=== PATIENT | female | born 1975 | race Caucasian/White ===

== ENCOUNTER 2021-06-21 19:59 | Emergency (ER) | payer MEDICAID, SELFPAY ==
[2021-06-21 20:02] VITALS: BP 140/91; PULSE 89; RESP 18; TEMP 36.7; O2SAT 100; BMI 21.6
[2021-06-21 20:09] VITALS: BP 140/91; PULSE 99; O2SAT 99
--- NOTE | 2021-06-21 21:16 | XR_ITS ---
PROCEDURE INFORMATION: Exam: XR Chest Exam date and time: 06/21/2021 9:27 PM Age: 45 years old Clinical indication: Pain; Other: Generalized post appendectomy 4 days ago. ; Prior surgery; Surgery date: Post-operative (0-2 days) TECHNIQUE: Imaging protocol: XR of the chest. Views: 2 views. COMPARISON: No relevant prior studies available. FINDINGS: Lungs: Unremarkable. No consolidation. Pleural spaces: Unremarkable. No pleural effusion. No pneumothorax. Heart/Mediastinum: Unremarkable. No cardiomegaly. Bones/joints: Unremarkable. IMPRESSION: No acute findings.
--- NOTE | 2021-06-21 21:16 | CT_ITS ---
PROCEDURE INFORMATION: Exam: CT Abdomen And Pelvis With Contrast Exam date and time: 06/21/2021 9:46 PM Age: 45 years old Clinical indication: Abdominal pain; Generalized; Prior surgery; Surgery date: 3-7 days post-operative; Surgery type: Appendectomy 4 days ago, pain with nausea and vomiting. TECHNIQUE: Imaging protocol: Computed tomography of the abdomen and pelvis with contrast. Radiation optimization: All CT scans at this facility use at least one of these dose optimization techniques: automated exposure control; mA and/or kV adjustment per patient size (includes targeted exams where dose is matched to clinical indication); or iterative reconstruction. Contrast material: ISOVUE; Contrast volume: 75 ml; Contrast route: IV; COMPARISON: CR XR CHEST 2V 06/21/2021 9:27 PM FINDINGS: Liver: Normal. No mass. Gallbladder and bile ducts: Normal. No calcified stones. No ductal dilation. Pancreas: Normal. No ductal dilation. Spleen: Normal. No splenomegaly. Adrenal glands: Normal. No mass. Kidneys and ureters: Normal. No hydronephrosis. Stomach and bowel: Unremarkable. No obstruction. No mucosal thickening. Appendix: Appendectomy. Intraperitoneal space: Unremarkable. No free air. No significant fluid collection. Arteries: Unremarkable. No abdominal aortic aneurysm. Lymph nodes: Unremarkable. No enlarged lymph nodes. Urinary bladder: Unremarkable as visualized. Reproductive: Unremarkable as visualized. Bones/joints: Spinal fixation hardware extending from L2 into the sacrum. Additional stabilizing screws are seen across both SI joints. L4-L5 spondylolisthesis. Soft tissues: Unremarkable. IMPRESSION: No acute findings.
--- NOTE | 2021-06-21 21:16 | [facility].EDGENADL ---
ED Disposition Clinical Impression: Discitis of lumbosacral region, Spinal abscess, Severe sepsis with acute organ dysfunction, IVDU (intravenous drug user), Amphetamine use Disposition: Xfer Short-Term Hosp Condition on Discharge: Serious Referrals: Bambi Beck APRN [Primary Care Provider] - - Critical Care Critical Care Time: Yes Attestation: On 06/21/21, the high probability of a clinically significant, sudden or life threatening deterioration of the following system(s) required my full and direct attention, intervention and personal management. The time I documented below is in addition to time spent performing reported procedures but includes the following listed in this critical care notation. Total Critical Care Time: 60 Vital system(s) involved:: Shock (Septic) My critical care processes included: Assessment & monitoring of V/S, Initial and Re-exams, Data Review/Interpretation, Coordinating Care, Medication Orders and management, Documentation Medical Decision Making - Medical Records Medical records reviewed: Yes: I reviewed the patient's medical records. - David Inquiry Pt receiving controlled substance: No Vital Signs: 06/21/21 20:02 06/21/21 20:09 06/21/21 22:54 Temperature 98.0 F Temperature Source Oral Pulse Rate 99 H 79 Pulse Rate [Left Radial] 89 Respiratory Rate 18 16 Blood Pressure 140/91 H 129/80 Blood Pressure [Right Arm] 140/91 H Blood Pressure Mean 106 98 Blood Pressure Mean [Right Arm] 107 Blood Pressure Source [Right Arm] Automatic Cuff Blood Pressure Position [Right Arm] Sitting 02 Sat by Pulse Oximetry 100 99 95 Oxygen Delivery Method Room Air 06/21/21 23:00 06/21/21 23:30 06/22/21 01:38 Temperature Temperature Source Pulse Rate 91 H 96 H 100 H Pulse Rate [Left Radial] Respiratory Rate Blood Pressure 144/85 H 130/79 135/78 Blood Pressure [Right Arm] Blood Pressure Mean 98 97 101 Blood Pressure Mean [Right Arm] Blood Pressure Source [Right Arm] Blood Pressure Position [Right Arm] 02 Sat by Pulse Oximetry 100 100 99 Oxygen Delivery Method - Lab Data Lab results reviewed: Yes: I reviewed the patient's lab results. Lab Results 06/21/21 00:00: Procalcitonin 0.747 06/21/21 21:16: SARS-CoV-2 (PCR) Not detected, Influenza A Untype (PCR) Not detected, Influenza Type B (PCR) Not detected 06/21/21 21:30: WBC 26.8 H*, RBC 4.13 L, Hgb 11.7 L, Hct 36.1 L, MCV 87.2, MCH 28.4, MCHC 32.6, RDW 14.8, Plt Count 594 H, MPV 8.1, Neut % (Auto) 93.1 H, Lymph % (Auto) 3.0 L, [place] % (Auto) 3.4, Eos % (Auto) 0.3, Baso % (Auto) 0.2, Neut # (Auto) 25.0 H, Lymph # (Auto) 0.8, [place] # (Auto) 0.9, Eos # (Auto) 0.1, Baso # (Auto) 0.1, Total Counted 100, Neutrophils % (Manual) 95 H, Lymphocytes % (Manual) 2 L, Monocytes % (Manual) 3, Platelet Estimate Moderate increase, ESR 126 H 06/21/21 21:30: Sodium 138, Potassium 2.9 L*, Chloride 105, Carbon Dioxide 25, Anion Gap 10.9, BUN 12, Creatinine 0.50 L, Estimated Creat Clear 148, Estimated GFR 135, Est GFR ( Amer) 163, Glucose 199 H, Calcium 8.8, Total Bilirubin 0.9, AST 20, ALT 21, Alkaline Phosphatase 175 H, C-Reactive Protein 250.0 H, Total Protein 7.2, Albumin 3.2 L, Globulin 4.0 H, Albumin/Globulin Ratio 0.8 L 06/21/21 21:30: Lactate 1.4 06/21/21 22:47: Urine Color Yellow, Urine Appearance Clear, Urine pH 6.5, Ur Specific [place] 1.010, Urine Protein Trace, Urine Glucose (UA) Trace, Urine Ketones Trace, Urine Blood Trace-i, Urine Nitrate Negative, Urine Bilirubin 1+ A, Urine Urobilinogen 2.0, Ur Leukocyte Esterase Negative, Urine RBC Occasional, Urine WBC 3-5, Ur Squamous Epith Cells 3-5, Urine Bacteria Trace 06/21/21 22:47: Urine Opiates Screen Negative, Urine Methadone Screen Negative, Ur Barbituates Screen Negative, Ur Phencyclidine Scrn Negative, Ur Amphetamines Screen Rn Pool, U Benzodiazepines Scrn Negative, Urine Cocaine Screen Negative, U Marijuana (THC) Screen Positive H Result diagrams: 06/21/21 21:
[2021-06-21 21:25] LABS: Coronavirus 19, PCR Not Detected (NotDetected); Influenza A, PCR Not Detected (NotDetected); Influenza B, PCR Not Detected (NotDetected)
[2021-06-21 21:38] LABS: Basophils # 0.1 K/mm3 (0-0.2); Basophils % 0.2 % (0.1-2.0); Eosinophils # 0.1 K/mm3 (0.0-0.4); Eosinophils % 0.3 % (0.1-12.0); Hematocrit 36.1 % (37.0-47.0); Hemoglobin 11.7 g/dL (12.2-16.2); Lymphocytes # 0.8 K/mm3 (0.7-4.5); Mean Corpuscular HGB Conc 32.6 g/dL (31.8-35.4); Mean Corpuscular Hemoglobin 28.4 pg (27.0-31.2); Mean Corpuscular Volume 87.2 fl (81-99); Mean Platelet Volume 8.1 fl (7.4-10.4); Monocytes # 0.9 K/mm3 (0.1-1.0); Monocytes % 3.4 % (1.7-9.3); Neutrophils % 93.1 % (37.0-80.0); Platelet Count 594 K/mm3 (142-424); Red Blood Count 4.13 M/mm3 (4.20-5.40); Red Cell Distribution Width 14.8 % (11.5-17.5); White Blood Count 26.8 K/mm3 (4.8-10.8)
[2021-06-21 21:44] LABS: MANUAL DIFFERENTIAL MANUAL DIFFERENTIAL (MANUAL DIFF)
[2021-06-21 21:49] LABS: Alanine Aminotransferase 21 U/L (12-78); Albumin Level 3.2 g/dl (3.5-5.0); Albumin/Globulin Ratio 0.8 (1.1-1.8); Alkaline Phosphatase 175 U/L (38-126); Anion Gap 10.9 mEq/L (5-15); Aspartate Amino Transferase 20 U/L (14-36); Bilirubin,Total 0.9 mg/dl (0.2-1.3); Blood Urea Nitrogen 12 mg/dl (7-17); Calcium 8.8 mg/dl (8.4-10.2); Carbon Dioxide 25 mmol/L (22.0-30.0); Chloride 105 mmol/L (98-107); Creatinine Clearance Estimated 148 mL/min (50-200); Estimated Glomerular Filt Rate 135 ml/min (>60); GFR (African American) 163 ML/MIN (>60); Glucose 199 mg/dl (74-100); Sodium 138 mmol/L (136-145); Total Protein,Serum 7.2 g/dl (6.3-8.2)
[2021-06-21 21:54] LABS: Potassium 2.9 mmoL/L (3.5-5.1)
--- NOTE | 2021-06-21 21:56 | PC.NURSE ---
notified rafal of critical potassium 2.9
[2021-06-21 22:02] LABS: Lymphocytes % 2 % (10-50); Monocytes % 3 % (2-9); Neutrophils % 95 % (42-76); Platelet Estimate Moderate Increase; Total Cells Counted 100
[2021-06-21 22:11] LABS: Lactic Acid 1.4 mmol/L (0.7-2.1)
[2021-06-21 22:32] LABS: Erythrocyte Sedimentation Rate 126 mm/hr (0-20)
--- NOTE | 2021-06-21 22:39 | PC.NURSE ---
faxed a release for information to [facility] at [phone] still no forms recieved
--- NOTE | 2021-06-21 22:47 | PC.NURSE ---
spoke with HIM at [facility] they said they will send records
--- NOTE | 2021-06-21 22:49 | PC.NURSE ---
PT IV WNL. PT ASSISTED TO RESTROOM. UA COLLECTED AND SENT TO LAB. WARM BLANKETS PROVIDED. PT REPORTS PAIN IN BETTER AT THIS TIME AND REPORTS THAT SHE WOULD LIKE THE LIGHTS TURNED OFF AND WOULD LIKE A NAP. LIGHTS DIMMED. NO ACUTE DISTRESS NOTED.
[2021-06-21 22:51] LABS: Microscopic, Urine URINE MICROSCOPIC (MICROSCOPIC)
[2021-06-21 22:54] VITALS: BP 129/80; PULSE 79; RESP 16; O2SAT 95
[2021-06-21 22:54] LABS: Appearance,Urine CLEAR (Clear); Blood, Urine TRACE-I (Negative); Color,Urine YELLOW (Yellow); Glucose,Urine (UA) TRACE (Negative); Ketones,Urine TRACE (Negative); Leukocyte Esterase,Urine Negative (Negative); Nitrate,Urine Negative (Negative); PH,Urine 6.5 (5.0-8.5); Protein,Urine TRACE (Negative)
[2021-06-21 22:58] LABS: Bilirubin,Urine 1+ (Negative)
[2021-06-21 23:00] VITALS: BP 144/85; PULSE 91; O2SAT 100
--- NOTE | 2021-06-21 23:15 | PC.NURSE ---
received records from [facility]
[2021-06-21 23:24] LABS: Bacteria,Urine Trace /lpf; RBC,Urine Occasional #/hpf (0-3)
[2021-06-21 23:30] VITALS: BP 130/79; PULSE 96; O2SAT 100
--- NOTE | 2021-06-21 23:53 | PC.NURSE ---
patient refuses to wear blood pressure cuff and pulse ox, states I can't stand it on my skin
--- NOTE | 2021-06-22 00:17 | CT_ITS ---
PROCEDURE INFORMATION: Exam: CT Thoracic Spine With Contrast Exam date and time: 06/22/2021 12:25 AM Age: 45 years old Clinical indication: Abnormal findings; Abnormal lab test; Other; High wbc TECHNIQUE: Imaging protocol: Computed tomography images of the thoracic spine with intravenous contrast. Radiation optimization: All CT scans at this facility use at least one of these dose optimization techniques: automated exposure control; mA and/or kV adjustment per patient size (includes targeted exams where dose is matched to clinical indication); or iterative reconstruction. Contrast material: ISOVUE; Contrast volume: 50 ml; Contrast route: IV; COMPARISON: CT ABDOMEN PELVIS W CON 06/21/2021 9:46 PM FINDINGS: Vertebrae: No acute fracture. Normal alignment. No evidence of bone destruction. Discs/Spinal canal/Neural foramina: No significant disc protrusion. No severe spinal canal stenosis. No significant neural foraminal narrowing. Soft tissues: Unremarkable. IMPRESSION: 1. No evidence of bone destruction. 2. No evidence of canal or foraminal stenosis.
--- NOTE | 2021-06-22 00:17 | CT_ITS ---
PROCEDURE INFORMATION: Exam: CT Cervical Spine with Contrast Exam date and time: 06/22/2021 12:25 AM Age: 45 years old Clinical indication: Abnormal findings; Abnormal lab test; Other: High wbc TECHNIQUE: Imaging protocol: Computed tomography images of the cervical spine with contrast. Radiation optimization: All CT scans at this facility use at least one of these dose optimization techniques: automated exposure control; mA and/or kV adjustment per patient size (includes targeted exams where dose is matched to clinical indication); or iterative reconstruction. Contrast material: ISOVUE; Contrast volume: 50 ml; Contrast route: IV; COMPARISON: CR XR CHEST 2V 06/21/2021 9:27 PM FINDINGS: Vertebrae: No acute fracture. Normal alignment. No evidence of bone destruction. C2-C3: No significant disc protrusion. No severe spinal canal stenosis. No significant neural foraminal narrowing. C3-C4: No significant disc protrusion. No severe spinal canal stenosis. No significant neural foraminal narrowing. C4-C5: Mild bulging annulus. No severe spinal canal stenosis. No significant neural foraminal narrowing. C5-C6: Disc desiccation. Broad-based discogenic osteophytic complex causing moderate central canal narrowing and bilateral foraminal stenosis. C6-C7: Disc desiccation. Epidural density extending from the level of the disc space inferiorly along the dorsal aspect of the vertebral body of C7. Mild spinal canal narrowing. No significant neural foraminal narrowing. C7-T1: No significant disc protrusion. No severe spinal canal stenosis. No significant neural foraminal narrowing. Soft tissues: Unremarkable. Lungs: Lung apices are normal. IMPRESSION: 1. No evidence of bone destruction. 2. C5-C6 disc desiccation. Broad-based discogenic osteophytic complex causing moderate central canal narrowing and bilateral foraminal stenosis. 3. C6-C7 disc desiccation. Epidural density extending from the level of the disc space inferiorly along the dorsal aspect of the vertebral body of C7 causing mild spinal canal narrowing. This finding may represent a disc herniation, but in the appropriate clinical setting epidural phlegmon or small epidural abscess could have a similar appearance. Please note that spine discitis/osteomyelitis cannot be totally excluded by CT. If this is of clinical concern contrast enhanced MRI of the cervical spine is recommended for further evaluation.
--- NOTE | 2021-06-22 00:17 | CT_ITS ---
PROCEDURE INFORMATION: Exam: CT Lumbar Spine With Contrast Exam date and time: 06/22/2021 12:39 AM Age: 45 years old Clinical indication: Abnormal findings; Abnormal lab test; Other; High wbc TECHNIQUE: Imaging protocol: Computed tomography images of the lumbar spine with intravenous contrast. Radiation optimization: All CT scans at this facility use at least one of these dose optimization techniques: automated exposure control; mA and/or kV adjustment per patient size (includes targeted exams where dose is matched to clinical indication); or iterative reconstruction. Contrast material: ISOVUE; Contrast volume: 50 ml; Contrast route: IV; COMPARISON: CT THORACIC SPINE W CON 06/22/2021 12:25 AM FINDINGS: Vertebrae: No acute fracture. 16 mm of anterolisthesis of L4 over L5. Wedge-shaped compression deformity of the vertebral body of L5 with bony fusion to the inferior endplate L4. Dorsal decompression and dorsal fusion with bilateral pedicular screws at L2 L3, L5 and S1 and right unilateral pedicular screw at L4. L1-L2: No significant disc protrusion. No severe spinal canal stenosis. No significant neural foraminal narrowing. L2-L3: No significant disc protrusion. No severe spinal canal stenosis. No significant neural foraminal narrowing. L3-L4: No significant disc protrusion. No severe spinal canal stenosis. No significant neural foraminal narrowing. L4-L5: Vertebral endplate fusion. Dorsal decompression. Bilateral foraminal stenosis. L5-S1: Vertebral endplate erosions. In the appropriate clinical setting discitis/osteomyelitis cannot be totally excluded. Evaluation of the canal contents is limited by CT resolution. Soft tissues: Rim enhancing fluid collection on the right dorsal paraspinal soft tissues along the dorsal aspect of the right metallic doron and pedicular screws from the level of L3 to the level of S1 measuring 3.2 x 4.2 cm in maximum axial dimensions by 7 cm in cephalocaudal extent. Diffuse dorsal subcutaneous fat stranding. IMPRESSION: 1. L5-S1 vertebral endplate erosions. In the appropriate clinical setting discitis/osteomyelitis cannot be totally excluded. Evaluation of the canal contents is limited by CT resolution. 2. Rim enhancing fluid collection compatible with an abscess in the right dorsal paraspinal soft tissues along the dorsal aspect of the right metallic doron and pedicular screws from the level of L3 to the level of S1, measuring 3.2 x 4.2 cm in maximum axial dimensions by 7cm in cephalocaudal extent. 3. Diffuse dorsal subcutaneous fat stranding. 4. 16 mm of anterolisthesis of L4 over L5. 5. Wedge-shaped compression deformity of the vertebral body of L5 with bony fusion to the inferior endplate L4. 6. Dorsal decompression and dorsal fusion with bilateral pedicular screws at L2 L3, L5 and S1 and right unilateral pedicular screw at L4.
[2021-06-22 00:51] LABS: Procalcitonin 0.747 ng/mL (0.0-2.0)
[2021-06-22 01:02] LABS: Barbiturates Screen,Urine Negative ng/ml (<200); Benzodiazepines Screen,Urine Negative ng/ml (<200)
[2021-06-22 01:06] LABS: Cannabinoid Screen,Urine Positive ng/ml (<50); Cocaine Screen,Urine Negative ng/ml (<300)
[2021-06-22 01:07] LABS: Methadone Screen,Urine Negative ng/ml (<300)
[2021-06-22 01:14] LABS: Opiate Screen,Urine Negative ng/ml (<300)
[2021-06-22 01:15] LABS: Phencyclidine Screen,Urine Negative ng/ml (<25)
[2021-06-22 01:38] VITALS: BP 135/78; PULSE 100; O2SAT 99
--- NOTE | 2021-06-22 02:50 | PC.NURSE ---
call to [facility] re: transfer
--- NOTE | 2021-06-22 03:11 | PC.NURSE ---
Dr. Handley spoke with [facility], [facility]
[2021-06-22 03:31] VITALS: BP 146/83; PULSE 91; RESP 18; TEMP 37; O2SAT 97
[2021-06-28 20:09] LABS: Amphetamine Positive (.); Amphetamine (GC/MS) 1974 ng/mL (Cutoff=500); Amphetamines Positive (.); Methamphetamine Positive (.); Methamphetamine (GC/MS) >3000 ng/mL (Cutoff=500)
== END 2021-06-22 03:50 | disposition short-term general hospital (02) ==
PROVIDERS: Emergency Provider Emergency Medicine; PCP Nurse Practitioner
DX: M46.47 Discitis, unspecified, lumbosacral region (principal); A18.01 Tuberculosis of spine; R65.21 Severe sepsis with septic shock; M25.519 Pain in unspecified shoulder; R07.81 Pleurodynia; M25.559 Pain in unspecified hip; R53.1 Weakness; R53.82 Chronic fatigue, unspecified; Z79.899 Other long term (current) drug therapy; Z88.8 Allergy status to other drugs, medicaments and biological substances
CPT/HCPCS: 71046; 72126; 72129; 72132; 74177; 80053; 80305; 80324; 81001; 83605; 84145; 85007; 85025; 85651; 86140; 87040; 87077; 87186; 96361; 96365; 96366; 96374; 96375; 99285; C9803; J2405; J3370; Q9967; U0003; U0005